=== PATIENT | female | born 1965 | race Two or more races ===

== ENCOUNTER 2025-03-30 18:27 | Emergency (ER) | payer OTHER ==
[2025-03-30 18:41] VITALS: BP 130/76; PULSE 78; RESP 18; TEMP 98.2; BMI 31.6
[2025-03-30] MEDS ORDERED: CEPHALEXIN MONOHYDRATE 500 MG CAPSULE (UD) ONE (19:37)
[2025-03-30] MEDS ORDERED: IBUPROFEN 600 MG TABLET (FP) PO ONE (19:37)
[2025-03-30] MEDS: IBUPROFEN 600 MG TABLET (FP) PO ONE (19:43)
[2025-03-30] MEDS: CEPHALEXIN MONOHYDRATE 500 MG CAPSULE (UD) PO ONE (19:43)
[2025-03-30] MEDS ORDERED: BACITRACIN ZINC 15 GM TUBE TOPICAL OINTMENT ONE (21:32)
[2025-03-30] MEDS: BACITRACIN ZINC 15 GM TUBE TOPICAL OINTMENT TP ONE (21:44)
== END 2025-03-30 21:45 | disposition home or self-care (01) ==
LOC: JERFT 18:27
DX: L60.0 Ingrowing nail (principal)
CPT/HCPCS: 99283-25